=== PATIENT | female | born 1950 | race African-American/Black ===

== ENCOUNTER 2016-07-10 15:15 | Emergency (ER) | payer OTHER, MEDICAID ==
[~2016-07-10] VITALS: Ht 172.7 cm; Wt 53.5 kg
[2016-07-10 15:30] VITALS: BP 129/88
--- NOTE | 2016-07-10 15:32 | NUR ---
Patient ambulated to bed 4. RN evaluating patient at bedside.
--- NOTE | 2016-07-10 15:45 | NUR ---
PATIENT PRESENTS TO ED WITH hematoma posterior palate . PT STATES is taking garlic/elias herbs . DENIES N/V/D; SKIN IS PINK/WARM/DRY; AAOX4 WITH EVEN AND STEADY GAIT; LUNGS CLEAR BL; HR EVEN AND REGULAR; PT DENIES ANY FEVER, CP, SOB, OR COUGH AT THIS TIME; PATIENT STATES PAIN OF 0/10 AT THIS TIME; VSS; PATIENT POSITIONED FOR COMFORT; HOB ELEVATED; BEDRAILS UP X2; BED DOWN. ER MD MADE AWARE OF PT STATUS.
--- NOTE | 2016-07-10 15:45 | NUR ---
at bedside---no active bleeding noted at this time---pt stated she did not notice till after eating apple.
--- NOTE | 2016-07-10 15:50 | NUR ---
ice chips provided to pt, instructed to allow ice to melt on roof of mouth
--- NOTE | 2016-07-10 16:33 | NUR ---
Patient discharged with v/s stable. Written and verbal after care instructions given and explained. Patient verbalized understanding. Ambulatory with steady gait. All questions addressed prior to discharge. Advised to follow up with PMD.
[2016-07-10 16:34] VITALS: BP 121/69
== END 2016-07-10 16:33 | disposition home or self-care (01) ==
LOC: MED 15:15
DX: S10.12XA Blister (nonthermal) of throat, initial encounter (principal); R03.0 Elevated blood-pressure reading, without diagnosis of hypertension; E07.9 Disorder of thyroid, unspecified; X58.XXXA Exposure to other specified factors, initial encounter; Y93.89 Activity, other specified; Y92.89 Other specified places as the place of occurrence of the external cause; Y99.8 Other external cause status

== ENCOUNTER 2019-10-19 20:23 | Emergency (ER) | payer OTHER, MEDICAID ==
[~2019-10-19] VITALS: Ht 170.2 cm; Wt 52.2 kg
[2019-10-19 20:32] VITALS: BP 141/78
--- NOTE | 2019-10-19 20:34 | NUR ---
PT AMBULATED TO BED 07 WITH STEADY GAIT.
--- NOTE | 2019-10-19 20:35 | NUR ---
69 YO F BIB SELF FOR C/C 5/10 CHEST PAIN THAT THE PT DESCRIBES "PRESSURE." PT STATES THE PRESSURE COMES AND GOES AND IS CURRENTLY 1/10. PT STATES THE PRESSURE STAYS IN THE MIDDLE OF HER CHEST BUT SHE IS EXPERIENCING NUMBNESS DOWN HER LEFT ARM. S1S2 HEARD. LUNG SOUNDS CLEAR THROUGHOUT. PERIPHERAL PULSES ARE EQUAL AND REGULAR. NO JVD NOTED. NO PERIPHERAL EDEMA SEEN. PT DENIES N/V/D. PT DENIES FEVER, COUGH, SOB, OR TRAVEL. 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 BED LOCKED AND IN LOWEST POSITION. SIDE RAILS X1. NKA MED HX: HYPOTHYROIDISM RX: SYNTHROID
--- NOTE | 2019-10-19 20:40 | NUR ---
BLOOD COLLECTED AND SENT TO LAB
[2019-10-19] MEDS ORDERED: NACL 0.9% 500 ML IV ONE (20:45)
[2019-10-19] MEDS ORDERED: ASPIRIN 81 MG TAB.CHEW PO ONE ×2 (20:45→20:50)
[2019-10-19 21:02] LABS: BASOPHILS % (AUTO) 0.8 % (0.0-2.0); EOSINOPHILS % (AUTO) 1.1 % (0.0-4.0); HEMATOCRIT 39.5 % (36-48); HEMOGLOBIN 13.3 g/dL (12.0-16.0); LYMPHOCYTES # (AUTO) 1.3 K/uL (2.5-16.5); LYMPHOCYTES % (AUTO) 42.8 % (20.5-51.1); MEAN CORPUSCULAR HEMOGLOBIN 32 pg (27-31); MEAN CORPUSCULAR HGB CONC 34 g/dL (33-37); MEAN CORPUSCULAR VOLUME 96.1 fL (80-94); MONOCYTES # (AUTO) 0.3 K/uL (0.8-1.0); MONOCYTES % (AUTO) 8.6 % (1.7-9.3); NEUTROPHILS # (AUTO) 1.4 K/uL (1.8-7.7); NEUTROPHILS % (AUTO) 46.7 % (42.2-75.2); PLATELET COUNT (AUTO) 156 K/uL (140-450); RED BLOOD CELL COUNT(AUTO) 4.11 MIL/uL (4.20-5.40); RED CELL DISTRIBUTION WIDTH 13.3 % (11.6-13.7)
--- NOTE | 2019-10-19 21:02 | NUR ---
RAD AT BEDSIDE
--- NOTE | 2019-10-19 21:10 | NUR ---
ERMD MADE AWARE OF BRADYCARIA AT 52 BPM.
[2019-10-19 21:23] LABS: ALBUMIN 4.3 g/dL (3.4-5.0); ANION GAP 9.9 (8-16); ASPARTATE AMINOTRANSFERASE 25 U/L (15-37); CARBON DIOXIDE 31.6 mmol/L (21-32); CHLORIDE 102 mmol/L (98-107); CREATININE 0.7 mg/dL (0.6-1.3); GLUCOSE 103 mg/dL (74-106); POTASSIUM 3.5 mmol/L (3.5-5.1); SODIUM SERUM 140 mmol/L (136-145); TOTAL BILIRUBIN 0.8 mg/dL (0.0-1.0); UREA NITROGEN, BLOOD 7 mg/dL (7-18)
--- NOTE | 2019-10-19 21:49 | NUR ---
PT RESTING IN BED COMFORTABLY. EQUAL CHEST RISE AND FALL. TEACHER PHYSICALLY IMPAIRED IN PLACE. PT STATES THAT THE CHEST PRESSURE IS STILL OCCURING. 05/18.
--- NOTE | 2019-10-19 22:53 | NUR ---
LAB AT BEDSIDE
--- NOTE | 2019-10-19 23:18 | NUR ---
PT RESTING IN BED COMFORTABLY. EQUAL CHEST RISE AND FALL. HAND SEWER SHOES IN PLACE. PT STATES THAT THE CHEST PRESSURE IS STILL OCCURING. 05/18.
[2019-10-19 23:45] VITALS: BP 131/81
--- NOTE | 2019-10-19 23:45 | NUR ---
Patient discharged with v/s stable. Written and verbal after care instructions given and explained. Patient alert, oriented and verbalized understanding of instructions. Ambulatory with steady gait. All questions addressed prior to discharge. ID band removed. Patient advised to follow up with PMD. Rx MOTRIN,of given. Patient educated on indication of medication including possible reaction and side effects. Opportunity to ask questions provided and answered.
== END 2019-10-19 23:45 | disposition home or self-care (01) ==
LOC: MED 20:23
DX: R07.9 Chest pain, unspecified (principal); E03.9 Hypothyroidism, unspecified
CPT/HCPCS: 36415; 71045; 80053; 84484; 85025; 93005; 99285; J7030; Q0092

== ENCOUNTER 2019-12-13 18:48 | Emergency (ER) | payer OTHER, MEDICAID ==
[~2019-12-13] VITALS: Ht 172.7 cm; Wt 56.7 kg
[2019-12-13 18:53] VITALS: BP 130/94
--- NOTE | 2019-12-13 18:57 | NUR ---
PT AMBULATED TO ER EBD 11
--- NOTE | 2019-12-13 19:08 | NUR ---
69 year old female presents to the emergency department with c/o rlq, llq abdominal 8/10 pain that radiates to ruq. reports tenderness to the ruq abdominal pain. states started x 4 days. pt denies any n/v/d. denies any other s/sx. abdomen is soft and non tender. normoactive bowel sounds. denies headache/sob. denies any injury trauma. pt sitting in chair grabbing onto abdomen grimacing in pain. pmhx: denies nka negative covid screen wearing mask.
--- NOTE | 2019-12-13 19:41 | NUR ---
Right FA pivc initiated. tolerated well
[2019-12-13 19:43] LABS: BASOPHILS % (AUTO) 0.3 % (0.0-2.0); EOSINOPHILS % (AUTO) 0.5 % (0.0-4.0); HEMATOCRIT 38.1 % (36-48); HEMOGLOBIN 12.9 g/dL (12.0-16.0); LYMPHOCYTES # (AUTO) 1.1 K/uL (2.5-16.5); LYMPHOCYTES % (AUTO) 35.1 % (20.5-51.1); MEAN CORPUSCULAR HEMOGLOBIN 32 pg (27-31); MEAN CORPUSCULAR HGB CONC 34 g/dL (33-37); MEAN CORPUSCULAR VOLUME 95.6 fL (80-94); MONOCYTES # (AUTO) 0.3 K/uL (0.8-1.0); MONOCYTES % (AUTO) 8.9 % (1.7-9.3); NEUTROPHILS # (AUTO) 1.7 K/uL (1.8-7.7); NEUTROPHILS % (AUTO) 55.2 % (42.2-75.2); PLATELET COUNT (AUTO) 164 K/uL (140-450); RED BLOOD CELL COUNT(AUTO) 3.99 MIL/uL (4.20-5.40); RED CELL DISTRIBUTION WIDTH 13.4 % (11.6-13.7); WHITE BLOOD COUNT (AUTO) 3.1 K/uL (4.8-10.8)
[2019-12-13] MEDS: NACL 0.9% 1,000 ML IV ONE (19:52)
[2019-12-13 19:55] LABS: ALBUMIN 4.3 g/dL (3.4-5.0); ANION GAP 10.9 (8-16); ASPARTATE AMINOTRANSFERASE 20 U/L (15-37); CARBON DIOXIDE 29.8 mmol/L (21-32); CHLORIDE 100 mmol/L (98-107); CREATININE 0.7 mg/dL (0.6-1.3); GLUCOSE 98 mg/dL (74-106); LIPASE 208 U/L (73-393); POTASSIUM 3.7 mmol/L (3.5-5.1); SODIUM SERUM 137 mmol/L (136-145); TOTAL BILIRUBIN 0.9 mg/dL (0.0-1.0); UREA NITROGEN, BLOOD 6 mg/dL (7-18)
[2019-12-13 20:30] LABS: APPEARANCE,URINE CLEAR (CLEAR); BILIRUBIN,URINE NEGATIVE (NEGATIVE); BLOOD, URINE NEGATIVE (NEGATIVE); COLOR,URINE YELLOW (YELLOW); LEUKOCYTE ESTERASE ,URINE 1+ (NEGATIVE); NITRITE, URINE NEGATIVE (NEGATIVE); PH,URINE 5.5 (5.0-9.0); UGLUCOSE NEGATIVE (NEGATIVE)
[2019-12-13 20:40] LABS: RBC,URINE 0-5 /HPF (0-5)
--- NOTE | 2019-12-13 21:00 | NUR ---
pt taken to CT via [facility]
--- NOTE | 2019-12-13 21:17 | NUR ---
pt returned from CT via [facility]
[2019-12-13 21:52] VITALS: BP 124/74
--- NOTE | 2019-12-13 21:53 | NUR ---
Patient discharged with v/s stable. Written and verbal after care instructions given and explained. Patient verbalized understanding. Ambulatory with steady gait. All questions addressed prior to discharge. Advised to follow up with PMD.Pt H/l were d/c. Prescription norco, zofran and other one given by Dr Maurer. Pt is aaox4, no complain of dizziness or any pain in origin. Vitals take n and recorded on the d/c instructions. Pt d/c.
== END 2019-12-13 21:51 | disposition home or self-care (01) ==
LOC: MED 18:48
DX: K80.20 Calculus of gallbladder without cholecystitis without obstruction (principal); K59.00 Constipation, unspecified; E07.9 Disorder of thyroid, unspecified
CPT/HCPCS: 36415; 74177; 80053; 81001; 81025; 83690; 85025; 87086; 96360; 99285; J7030; Q9967

== ENCOUNTER 2019-12-25 19:32 | Emergency (ER) | payer OTHER, MEDICAID ==
[~2019-12-25] VITALS: Ht 172.7 cm; Wt 54.4 kg
[2019-12-25 19:53] VITALS: BP 122/87
--- NOTE | 2019-12-25 19:59 | NUR ---
PT TAKEN TO CHAIR C
--- NOTE | 2019-12-25 20:05 | NUR ---
SATHYA CARTER AT BEDSIDE.
--- NOTE | 2019-12-25 20:10 | NUR ---
69 year old female presents to the emergency department with c/o rt arm pain x 2 days. observed 3cm hematoma formed around the antecubital fossa. denies any other s/sx. pmhx: denies nka
--- NOTE | 2019-12-25 20:25 | NUR ---
NO NURSING INTERVENTION NEEDED. PT ASSESSED, TREATED, AND D/C BY EMMA MCDONNELL.
[2019-12-25 20:30] VITALS: BP 124/88
== END 2019-12-25 20:30 | disposition home or self-care (01) ==
LOC: MED 19:32
DX: S40.021A Contusion of right upper arm, initial encounter (principal); R03.0 Elevated blood-pressure reading, without diagnosis of hypertension; E03.9 Hypothyroidism, unspecified; Z02.89 Encounter for other administrative examinations; X58.XXXA Exposure to other specified factors, initial encounter; Y93.89 Activity, other specified; Y92.89 Other specified places as the place of occurrence of the external cause; Y99.8 Other external cause status
CPT/HCPCS: 99282

== ENCOUNTER 2020-01-19 19:30 | Emergency (ER) | payer OTHER, MEDICAID ==
[~2020-01-19] VITALS: Ht 172.7 cm; Wt 53.1 kg
[2020-01-19 19:37] VITALS: BP 168/82
--- NOTE | 2020-01-19 19:47 | NUR ---
PT AMBULATED TO ER BED 9
--- NOTE | 2020-01-19 19:48 | NUR ---
PT 69 Y/O FEMALE BIB SELF FOR C/O R LATERAL PAIN IN LOWER BACK RADAITNG TO R HIP AND LOWER ABD. PT STATES SHE BENT DOWN TO WASH HER FACE X 4 DAYS AGO AND HAS FELT PAIN SINCE THEN. PAIN 8/10. PT STATES DIFFICULT TO WALK D/T PAIN. DENIES N/V/D. ABD IS SOFT, FLAT AND NONTENDER TO TOUCH. DENIES PAINFUL URINATION. VSS. PT REPOSITIONED IN BED FOR COMFORT. BED LOCKED AND IN LOWEST POSITION. MEDHX: HYPOTHYROID ALLERGIES: NKA
--- NOTE | 2020-01-19 19:50 | NUR ---
DR. OSULLIVAN BEDSIDE EVALUATING PT
[2020-01-19] MEDS ORDERED: KETOROLAC 15 MG/ML VIAL IVP ONE (20:00)
[2020-01-19] MEDS ORDERED: methocarbamoL 500 MG TAB PO SCH (20:00)
--- NOTE | 2020-01-19 20:03 | NUR ---
URINE SAMPLE COLLECTED AND WALKED TO LAB.
[2020-01-19 20:08] LABS: APPEARANCE,URINE CLEAR (CLEAR); BILIRUBIN,URINE NEGATIVE (NEGATIVE); BLOOD, URINE NEGATIVE (NEGATIVE); COLOR,URINE YELLOW (YELLOW); LEUKOCYTE ESTERASE ,URINE 1+ (NEGATIVE); NITRITE, URINE NEGATIVE (NEGATIVE); PH,URINE 5.5 (5.0-9.0); UGLUCOSE NEGATIVE (NEGATIVE)
--- NOTE | 2020-01-19 20:10 | NUR ---
LAB AT BED SIDE. LABS VIKTOR AND KRYSTAL COLLECTED.
[2020-01-19 20:19] LABS: RBC,URINE 0-5 /HPF (0-5)
[2020-01-19 20:23] LABS: BASOPHILS % (AUTO) 0.2 % (0.0-2.0); EOSINOPHILS % (AUTO) 0.3 % (0.0-4.0); HEMATOCRIT 34.9 % (36-48); HEMOGLOBIN 12.1 g/dL (12.0-16.0); LYMPHOCYTES # (AUTO) 0.7 K/uL (2.5-16.5); LYMPHOCYTES % (AUTO) 18.9 % (20.5-51.1); MEAN CORPUSCULAR HEMOGLOBIN 32 pg (27-31); MEAN CORPUSCULAR HGB CONC 35 g/dL (33-37); MEAN CORPUSCULAR VOLUME 93.8 fL (80-94); MONOCYTES # (AUTO) 0.3 K/uL (0.8-1.0); MONOCYTES % (AUTO) 8.8 % (1.7-9.3); NEUTROPHILS # (AUTO) 2.8 K/uL (1.8-7.7); NEUTROPHILS % (AUTO) 71.8 % (42.2-75.2); PLATELET COUNT (AUTO) 166 K/uL (140-450); RED BLOOD CELL COUNT(AUTO) 3.71 MIL/uL (4.20-5.40); RED CELL DISTRIBUTION WIDTH 13.3 % (11.6-13.7); WHITE BLOOD COUNT (AUTO) 3.9 K/uL (4.8-10.8)
[2020-01-19 20:33] LABS: ALBUMIN 3.8 g/dL (3.4-5.0); ANION GAP 10.2 (8-16); ASPARTATE AMINOTRANSFERASE 17 U/L (15-37); CARBON DIOXIDE 28.5 mmol/L (21-32); CHLORIDE 101 mmol/L (98-107); CREATININE 0.7 mg/dL (0.6-1.3); GLUCOSE 96 mg/dL (74-106); POTASSIUM 3.7 mmol/L (3.5-5.1); SODIUM SERUM 136 mmol/L (136-145); TOTAL BILIRUBIN 0.8 mg/dL (0.0-1.0); UREA NITROGEN, BLOOD 9 mg/dL (7-18)
[2020-01-19] MEDS ORDERED: cefTRIAXone 1,000 MG VIAL ONE (20:46)
--- NOTE | 2020-01-19 20:48 | NUR ---
ERMD BEDSIDE EVALUATING PT
--- NOTE | 2020-01-19 20:49 | NUR ---
ERMD AT BEDSIDE.
--- NOTE | 2020-01-19 20:55 | NUR ---
ROCEPHIN 1000MG IN D5% 50ML GIVEN IVPB @ 100ML/HR.
--- NOTE | 2020-01-19 21:30 | NUR ---
ROCEHPIN 1G COMPLETED. NO C/O PAIN IN IV SITE OR REDNESS/SWELLING. NADR FROM MEDICATION.
--- NOTE | 2020-01-19 21:48 | NUR ---
PT ROAD TESTED. PT ABLE TO AMBUALTE WITH STEADY GAIT. PT A&O X4. DENIES DIZZYNESS OR BLURRED VISION. PT STATES "THE PAIN FEELS BETTER."
--- NOTE | 2020-01-19 21:50 | NUR ---
IV removed, catheter intact and site benign. Applied folded 4x4 gauze and tape to stop bleeding.
[2020-01-19 21:51] VITALS: BP 154/88
--- NOTE | 2020-01-19 21:51 | NUR ---
Patient discharged with v/s stable. Written and verbal after care instructions given and explained. Patient alert, oriented and verbalized understanding of instructions. Ambulatory with steady gait. All questions addressed prior to discharge. ID band removed. Patient advised to follow up with PMD. Rx of MOTRIN, ROBAXIN, KEFLEX given. Patient educated on indication of medication including possible reaction and side effects. Opportunity to ask questions provided and answered.
== END 2020-01-19 21:51 | disposition home or self-care (01) ==
LOC: MED 19:30
DX: N10 Acute pyelonephritis (principal); M25.551 Pain in right hip; E07.9 Disorder of thyroid, unspecified
CPT/HCPCS: 36415; 73502; 80053; 81001; 85025; 87086; 96374; 99284; J0696; J1885; Q0092

== ENCOUNTER 2020-12-15 21:55 | Emergency (ER) | payer OTHER, MEDICAID ==
[~2020-12-15] VITALS: Ht 170.2 cm; Wt 54.4 kg
[2020-12-15 22:20] VITALS: BP 127/90
--- NOTE | 2020-12-15 22:22 | NUR ---
SEEN AND EXAMINED BY JEREMIAH
--- NOTE | 2020-12-15 22:23 | NUR ---
TO LOBBY A/W BED AMBULATORY
[2020-12-15 22:40] LABS: BASOPHILS % (AUTO) 0.3 % (0.0-2.0); EOSINOPHILS # (AUTO) 0.1 K/uL (0-0.4); EOSINOPHILS % (AUTO) 2.8 % (0.0-4.0); HEMATOCRIT 36.7 % (36-48); HEMOGLOBIN 12.4 g/dL (12.0-16.0); LYMPHOCYTES # (AUTO) 0.9 K/uL (2.5-16.5); LYMPHOCYTES % (AUTO) 29.9 % (20.5-51.1); MEAN CORPUSCULAR HEMOGLOBIN 32 pg (27-31); MEAN CORPUSCULAR HGB CONC 34 g/dL (33-37); MEAN CORPUSCULAR VOLUME 93.8 fL (80-94); MONOCYTES # (AUTO) 0.2 K/uL (0.8-1.0); MONOCYTES % (AUTO) 7.5 % (1.7-9.3); NEUTROPHILS # (AUTO) 1.8 K/uL (1.8-7.7); NEUTROPHILS % (AUTO) 59.5 % (42.2-75.2); PLATELET COUNT (AUTO) 165 K/uL (140-450); RED BLOOD CELL COUNT(AUTO) 3.91 MIL/uL (4.20-5.40); RED CELL DISTRIBUTION WIDTH 13.8 % (11.6-13.7); WHITE BLOOD COUNT (AUTO) 3.1 K/uL (4.8-10.8)
[2020-12-15 23:01] LABS: PROTHROMBIN TIME 9.8 secs (10.8-13.4)
[2020-12-15 23:15] LABS: ALBUMIN 4.1 g/dL (3.4-5.0); ANION GAP 10.4 (8-16); ASPARTATE AMINOTRANSFERASE 21 U/L (15-37); CARBON DIOXIDE 28.2 mmol/L (21-32); CHLORIDE 103 mmol/L (98-107); CREATININE 0.6 mg/dL (0.6-1.3); GLUCOSE 99 mg/dL (74-106); POTASSIUM 3.6 mmol/L (3.5-5.1); SODIUM SERUM 138 mmol/L (136-145); TOTAL BILIRUBIN 0.7 mg/dL (0.0-1.0); UREA NITROGEN, BLOOD 9 mg/dL (7-18)
[2020-12-15 23:18] LABS: FREE T4 (FREE THYROXINE) 1.15 ng/dL (0.76-1.46); THYROID STIMULATING HORMONE 4.39 uIU/mL (0.34-3.74)
--- NOTE | 2020-12-16 00:37 | NUR ---
CHEST PAIN STARTED TODAY, WITH PALPITATIONS FOR 2 WEEKS. PATIENT HAS PAIN LEFT UNDER BREAST THAT COMES AND GOES THAT FEELS LIKE CRAMPING 11/15. DENIES N/V/D AND DIFFICULTY BREATHING. PATIENT DENIES TAKING ANY MEDICATION OTHER THAN THYROID MEDICATION. AAOX4. VSS. PMH: THYROIDISM NKA
--- NOTE | 2020-12-16 00:38 | NUR ---
TO ER BED 2
[2020-12-16 07:02] VITALS: BP 123/75
== END 2020-12-16 07:02 | disposition home or self-care (01) ==
LOC: MED 21:55
DX: R00.2 Palpitations (principal); R07.9 Chest pain, unspecified; E03.9 Hypothyroidism, unspecified
CPT/HCPCS: 36415; 71045; 80053; 83880; 84439; 84443; 84479; 84484; 85025; 85610; 85730; 93005; 99285

== ENCOUNTER 2021-08-10 16:43 | Emergency (ER) | payer OTHER, MEDICAID ==
[~2021-08-10] VITALS: Ht 172.7 cm; Wt 53.5 kg
[2021-08-10 16:48] VITALS: BP 119/74
[2021-08-10] MEDS ORDERED: CEPH-588 PO (19:06)
[2021-08-10] MEDS ORDERED: NAPR-54 PO (19:06)
[2021-08-10] MEDS ORDERED: LID5T TP (19:06)
[2021-08-10] MEDS ORDERED: MIRABULK PO (19:15)
[2021-08-10] MEDS ORDERED: TRAM50TA1 PO (19:15)
[2021-08-10 19:27] VITALS: BP 119/74
== END 2021-08-10 19:57 | disposition home or self-care (01) ==
LOC: MED 16:43
DX: N39.0 Urinary tract infection, site not specified (principal); M54.50 Low back pain, unspecified; M25.551 Pain in right hip; M25.552 Pain in left hip; Z86.39 Personal history of other endocrine, nutritional and metabolic disease; Z79.899 Other long term (current) drug therapy; Z79.891 Long term (current) use of opiate analgesic; Z79.2 Long term (current) use of antibiotics
CPT/HCPCS: 72110; 72170; 81002; 99284

== ENCOUNTER 2021-09-21 13:25 | Emergency (ER) | payer OTHER, MEDICAID ==
[~2021-09-21] VITALS: Ht 172.7 cm; Wt 53.1 kg
[~2021-09-21 13:25] MED LIST: CEPH-588 PO; LID5T TP; MIRABULK PO; TRAM50TA1 PO
[2021-09-21 13:37] VITALS: BP 123/74
--- NOTE | 2021-09-21 13:40 | NUR ---
PT TO LOBBY.
--- NOTE | 2021-09-21 14:00 | NUR ---
PT AMBULATED TO ER BED 4 WITH A STEADY GAIT.
--- NOTE | 2021-09-21 14:01 | NUR ---
Sal schmidt in [facility] - 09/21/21 at 1401 by [email or web address] PT AMBULATED TO ER BED 4
--- NOTE | 2021-09-21 14:55 | NUR ---
Patient discharged with v/s stable. Written and verbal after care instructions ABOUT HYPOGLYCEMIA given and explained. Patient verbalized understanding. Ambulatory with steady gait. All questions addressed prior to discharge. Advised to follow up with PMD.
== END 2021-09-21 14:55 | disposition home or self-care (01) ==
LOC: MED 13:25
DX: R42 Dizziness and giddiness (principal); E03.9 Hypothyroidism, unspecified
CPT/HCPCS: 81002; 99282

== ENCOUNTER 2022-01-31 20:05 | Emergency (ER) | payer OTHER, MEDICAID ==
[~2022-01-31] VITALS: Ht 171.4 cm; Wt 53.7 kg
[2022-01-31 20:27] VITALS: BP 113/81
--- NOTE | 2022-01-31 20:31 | NUR ---
PT TO LOBBY
[2022-01-31 20:54] LABS: BASOPHILS % (AUTO) 0.1 % (0.0-2.0); EOSINOPHILS % (AUTO) 0.2 % (0.0-4.0); HEMATOCRIT 35.6 % (36-48); HEMOGLOBIN 12.1 g/dL (12.0-16.0); LYMPHOCYTES # (AUTO) 1.2 K/uL (2.5-16.5); LYMPHOCYTES % (AUTO) 21.7 % (20.5-51.1); MEAN CORPUSCULAR HEMOGLOBIN 30 pg (27-31); MEAN CORPUSCULAR HGB CONC 34 g/dL (33-37); MEAN CORPUSCULAR VOLUME 88.4 fL (80-94); MONOCYTES # (AUTO) 0.3 K/uL (0.8-1.0); PLATELET COUNT (AUTO) 142 K/uL (140-450); RED BLOOD CELL COUNT(AUTO) 4.03 MIL/uL (4.20-5.40); RED CELL DISTRIBUTION WIDTH 15.6 % (11.6-13.7); WHITE BLOOD COUNT (AUTO) 5.6 K/uL (4.8-10.8)
[2022-01-31 21:15] LABS: ALBUMIN 3.9 g/dL (3.4-5.0); ANION GAP 13.9 (8-16); CARBON DIOXIDE 24.6 mmol/L (21-32); CHLORIDE 102 mmol/L (98-107); CREATININE 0.6 mg/dL (0.6-1.3); GLUCOSE 73 mg/dL (74-106); LIPASE 3364 U/L (73-393); POTASSIUM 3.5 mmol/L (3.5-5.1); SODIUM SERUM 137 mmol/L (136-145); TOTAL BILIRUBIN 1.3 mg/dL (0.0-1.0); UREA NITROGEN, BLOOD 7 mg/dL (7-18)
[2022-02-01 02:54] VITALS: BP 118/79
== END 2022-02-01 02:54 | disposition home or self-care (01) ==
LOC: MED 20:05
DX: K85.90 Acute pancreatitis without necrosis or infection, unspecified (principal); E03.9 Hypothyroidism, unspecified
CPT/HCPCS: 36415; 80053; 83690; 85025; 99283

== ENCOUNTER 2022-06-26 23:16 | Emergency (ER) | payer OTHER, MEDICAID ==
[~2022-06-26] VITALS: Ht 170.2 cm; Wt 43.1 kg
[~2022-06-26 23:16] MED LIST changes: +TRAM-748 PO; -TRAM50TA1 PO
[2022-06-26 23:35] VITALS: BP 98/70
--- NOTE | 2022-06-26 23:43 | NUR ---
PT TO 7
[2022-06-26] MEDS ORDERED: NACL 0.9% 1,000 ML IV ONE (23:50)
[2022-06-26] MEDS ORDERED: FAMOTIDINE 20 MG/2 ML VIAL IVP ONE (23:50)
--- NOTE | 2022-06-27 | NUR ---
72 Y/O F presents with sharp abdominal pain 10/10 xtoday. pt stated she has diarrhea, nausea and vomiting xtoday. pt is ambulatory with assistive device. pt is A&Ox4, skin intact. PMH- hypothyroid, gallstone, pancreatitis NKA
[2022-06-27 00:05] LABS: BASOPHILS % (AUTO) 0.2 % (0.0-2.0); EOSINOPHILS % (AUTO) 0.1 % (0.0-4.0); HEMATOCRIT 33.7 % (36-48); HEMOGLOBIN 11.4 g/dL (12.0-16.0); LYMPHOCYTES # (AUTO) 0.1 K/uL (2.5-16.5); LYMPHOCYTES % (AUTO) 4.1 % (20.5-51.1); MEAN CORPUSCULAR HEMOGLOBIN 32 pg (27-31); MEAN CORPUSCULAR HGB CONC 34 g/dL (33-37); MEAN CORPUSCULAR VOLUME 94.7 fL (80-94); MONOCYTES # (AUTO) 0.1 K/uL (0.8-1.0); MONOCYTES % (AUTO) 3.6 % (1.7-9.3); PLATELET COUNT (AUTO) 114 K/uL (140-450); RED BLOOD CELL COUNT(AUTO) 3.55 MIL/uL (4.20-5.40); RED CELL DISTRIBUTION WIDTH 15.5 % (11.6-13.7); WHITE BLOOD COUNT (AUTO) 3.3 K/uL (4.8-10.8)
[2022-06-27 00:24] LABS: ALBUMIN 4.2 g/dL (3.4-5.0); AMYLASE 92 U/L (25-115); ANION GAP 11.6 (8-16); ASPARTATE AMINOTRANSFERASE 219 U/L (15-37); CARBON DIOXIDE 27.8 mmol/L (21-32); CHLORIDE 98 mmol/L (98-107); CREATININE 0.7 mg/dL (0.6-1.3); GLUCOSE 135 mg/dL (74-106); LIPASE 128 U/L (73-393); POTASSIUM 3.4 mmol/L (3.5-5.1); SODIUM SERUM 134 mmol/L (136-145); UREA NITROGEN, BLOOD 8 mg/dL (7-18)
--- NOTE | 2022-06-27 00:41 | NUR ---
pt in room on finance professor.
--- NOTE | 2022-06-27 00:51 | NUR ---
pt to CT
--- NOTE | 2022-06-27 01:00 | NUR ---
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
[2022-06-27] MEDS ORDERED: NACL 0.9% 1,000 ML IV ONE (02:35)
[2022-06-27] MEDS ORDERED: PIPERACILLIN/TAZOBACTAM 3.375 GM in DEXTROSE 5% 50 ML IV ONE (03:25)
[2022-06-27] MEDS ORDERED: PIPERACILLIN/TAZOBACTAM 3.375 GM VIAL IV ONE (03:32)
--- NOTE | 2022-06-27 03:39 | NUR ---
JACKIE COLLECTED AND GIVEN TO TIMOTHY
[2022-06-27] MEDS ORDERED: METR-520 PO (04:42)
[2022-06-27] MEDS ORDERED: FAMO-92 PO (04:42)
[2022-06-27 04:50] VITALS: BP 98/70
--- NOTE | 2022-06-27 04:50 | NUR ---
Patient discharged with v/s stable. Written and verbal after care instructions given and explained. Patient alert, oriented and verbalized understanding of instructions. Ambulatory with steady gait. All questions addressed prior to discharge. ID band removed. Patient advised to follow up with PMD. Rx of FLAGYL, PEPCID given. Patient educated on indication of medication including possible reaction and side effects. Opportunity to ask questions provided and answered.D/C BY .
--- NOTE | 2022-06-27 05:00 | NUR ---
Dr. Hagan at bedside
== END 2022-06-27 04:50 | disposition home or self-care (01) ==
LOC: MED 23:16
DX: K81.0 Acute cholecystitis (principal); Z20.822 Contact with and (suspected) exposure to COVID-19; E03.9 Hypothyroidism, unspecified; Z79.899 Other long term (current) drug therapy; Z79.2 Long term (current) use of antibiotics; Z79.891 Long term (current) use of opiate analgesic
CPT/HCPCS: 36415; 74176; 80053; 82150; 83605; 83690; 85025; 87040; 87426; 96361; 96365; 96375; 99285; J2543; J3490; J7030

== ENCOUNTER 2022-12-21 07:48 | Emergency (ER) | payer OTHER, MEDICAID ==
[~2022-12-21] VITALS: Ht 170.2 cm; Wt 43.5 kg
[~2022-12-21 07:48] MED LIST changes: +FAMO-92 PO; +METR-520 PO
[2022-12-21 08:02] VITALS: BP 121/93; PULSE 80; RESP 18; TEMP 98; O2SAT 100
[2022-12-21 09:14] LABS: BASOPHILS % (AUTO) 0.3 % (0.0-2.0); EOSINOPHILS % (AUTO) 1.3 % (0.0-4.0); HEMATOCRIT 35.4 % (36-48); HEMOGLOBIN 11.9 g/dL (12.0-16.0); LYMPHOCYTES # (AUTO) 0.5 K/uL (2.5-16.5); LYMPHOCYTES % (AUTO) 32.4 % (20.5-51.1); MEAN CORPUSCULAR HEMOGLOBIN 30 pg (27-31); MEAN CORPUSCULAR HGB CONC 34 g/dL (33-37); MEAN CORPUSCULAR VOLUME 89.8 fL (80-94); MONOCYTES # (AUTO) 0.2 K/uL (0.8-1.0); MONOCYTES % (AUTO) 12.1 % (1.7-9.3); NEUTROPHILS # (AUTO) 0.9 K/uL (1.8-7.7); NEUTROPHILS % (AUTO) 53.9 % (42.2-75.2); PLATELET COUNT (AUTO) 139 K/uL (140-450); RED BLOOD CELL COUNT(AUTO) 3.94 MIL/uL (4.20-5.40); RED CELL DISTRIBUTION WIDTH 14.1 % (11.6-13.7)
[2022-12-21 09:17] LABS: WHITE BLOOD COUNT (AUTO) 1.7 K/uL (4.8-10.8)
[2022-12-21 09:19] LABS: ALANINE AMINOTRANSFERASE 24 U/L (12-78); ALBUMIN 3.7 g/dL (3.4-5.0); ALKALINE PHOSPHATASE 100 U/L (50-136); ANION GAP 7.7 (8-16); ASPARTATE AMINOTRANSFERASE 26 U/L (15-37); CALCIUM 8.6 mg/dL (8.5-10.1); CARBON DIOXIDE 32.3 mmol/L (21-32); CHLORIDE 101 mmol/L (98-107); CREATININE 0.7 mg/dL (0.6-1.3); GLUCOSE 91 mg/dL (74-106); LIPASE 150 U/L (73-393); SODIUM SERUM 137 mmol/L (136-145); TOTAL BILIRUBIN 0.7 mg/dL (0.0-1.0); UREA NITROGEN, BLOOD 8 mg/dL (7-18)
[2022-12-21 10:51] VITALS: BP 120/88; PULSE 79; RESP 18; TEMP 98; O2SAT 100
[2022-12-21] MEDS ORDERED: MIRABULK PO (10:58)
[2022-12-21] MEDS ORDERED: DOCU-299 PO (10:58)
== END 2022-12-21 11:05 | disposition home or self-care (01) ==
LOC: MED 07:48
DX: K80.20 Calculus of gallbladder without cholecystitis without obstruction (principal); K59.00 Constipation, unspecified; E03.9 Hypothyroidism, unspecified; Z79.899 Other long term (current) drug therapy; Z98.890 Other specified postprocedural states
CPT/HCPCS: 36415; 74177; 80053; 83690; 85025; 99285; Q9967